=== PATIENT | female | born 1965 | race Caucasian/White ===

== ENCOUNTER → 2016-11-29 | Outpatient (CLI) | payer OTHER ==
[~2016-11-29] MED LIST: BUPR-79 PO; CALC-393 PO; CALC-485 PO; EFFSR75 PO; LVNIS30 SQ; MONT1TAB3 PO; MULT-506 PO; PANT40TA PO; ROPI1TAB PO; RXC5 PO; VENL150C56 PO; VENL150T33 PO
--- NOTE | 2016-11-29 08:32 | DIAGNOSTIC IMAGING REPORT ---
CHEST 2 VIEWS ROUTINE CLINICAL HISTORY: Cough COMPARISON STUDY: 01/18/2016 FINDINGS: The cardiac and mediastinal contours remain stable. There is a retrocardiac opacity suspicious for a hiatal hernia. There is no failure. There is no focal pulmonary consolidation. There are no pleural effusions.[ IMPRESSION: No active disease in the chest. Electronically signed by: Vince Marsh M.D. 11/29/2016 8:30 AM Dictated Date/Time: 11/29/2016 8:30 AM
[2016-11-29 09:40] LABS: BASO % 0.2 %; BASO ABS # 0.01 K/uL (0-0.2); COMPLETE YES; EOS % 2.1 %; HEMATOCRIT 42.7 % (37-47); IG% 0.2 %; LYMPH % 34.5 %; LYMPH ABS # 1.84 K/uL (1.2-3.4); MEAN CORPUSCULAR HEMOGLOBIN 28.5 pg (25-34); MEAN CORPUSCULAR HGB CONC 32.8 g/dl (32-36); MEAN PLATELET VOLUME 11.7 fL (7.4-10.4); MONO % 5.8 %; NEUT % 57.2 %; PLATELET COUNT 219 K/uL (130-400); RED BLOOD COUNT 4.91 M/uL (4.2-5.4); WHITE BLOOD COUNT 5.33 K/uL (4.8-10.8)
[2016-11-29 09:54] LABS: BLOOD UREA NITROGEN 21 mg/dl (7-18); BUN/CREATININE RATIO 23.6 (10-20); CALCIUM 9.2 mg/dl (8.5-10.1); CARBON DIOXIDE 23 mmol/L (21-32); CHLORIDE 106 mmol/L (98-107); CHOLESTEROL 174 mg/dl (0-200); CREATININE 0.87 mg/dl (0.60-1.20); GLUCOSE 95 mg/dl (70-99); POTASSIUM 4.2 mmol/L (3.5-5.1); SODIUM 141 mmol/L (136-145)
[2016-11-29 10:05] LABS: CHOLESTEROL/HDL RATIO 3.2; HDL CHOLESTEROL 54 mg/dl; LDL CHOLESTEROL CALCULATED 85 mg/dl; TRIGLYCERIDES 174 mg/dl (0-150); VERY LOW DENSITY LIPOPROT CALC 35 mg/dl
== END | disposition home or self-care (01) ==
LOC: C.RAD 07:54
PROVIDERS: ATTEND Internal Medicine
DX: R05 Cough (principal); Z13.1 Encounter for screening for diabetes mellitus; Z13.220 Encounter for screening for lipoid disorders; F41.8 Other specified anxiety disorders; R12 Heartburn

== ENCOUNTER → 2017-06-13 | Day surgery (SDC) | payer OTHER ==
[2017-05-26 14:49] VITALS: BMI 39.0
[~2017-06-13] VITALS: Ht 162.6 cm; Wt 104.5 kg
[~2017-06-13] MED LIST changes: -CALC-485 PO; +LIDOCAINE HCL 2% 2 ML VIAL (20MG/ML) ONE; -LVNIS30 SQ; -MONT1TAB3 PO; +PROPOFOL IV EMULSION 10 MG/ML 20 ML VIAL IV ONE; -RXC5 PO; -VENL150T33 PO
[2017-06-13 10:05] VITALS: Ht 162.6 cm; Wt 104.5 kg
[2017-06-13 10:07] VITALS: TEMP 36.8
--- NOTE | 2017-06-13 10:18 | Endo History and Physical ---
History & Physical Date of Service: Jun 13, 2017. Chief Complaint: SCREENING FOR COLON CA Referring Physician: DR. MARLEN VARNER History of Present Illness 51 yo CF who presents for screening colonoscopy. Past Medical History Arthritis, Reflux Past Surgical History Hx Cardiac Surgery: No Hx Internal Defibrillator: No Hx Pacemaker: No Hx Abdominal Surgery: Yes (TUBAL LIGATION, LEANNE) Hx of Implantable Prosthesis: No Hx Post-Op Nausea and Vomiting: No Hx Cancer Surgery: No Hx Thoracic Surgery: No Hx Orthopedic: Yes (LEFT ANKLE ORIF, RT EDELMIRA) Hx Urinary Tract Surgery: No Family History Colon CA Social History Smoking Status: Former Smoker Hx Substance Use: No Hx Alcohol Use: Yes (OCCASIONALLY) Allergies Coded Allergies: Aspirin (Verified Adverse Reaction, Unknown, SEVERE GI UPSET, 05/26/17) Current Medications Reported Home Medications Medications Dose Route/Sig Max Daily Dose Days Date Category Requip (Ropinirole HCl) 1 Mg Tab 1 Mg PO BID 05/26/17 Reported Wellbutrin Sr (Bupropion HCl) 150 Mg Ertab 150 Mg PO HS 05/26/17 Reported Multivitamin (Multivitamins) Tab 1 Tab PO QAM 05/26/17 Reported Calcium (Calcium Carbonate) 600 Mg Tab 1 Tab PO QAM 05/26/17 Reported Protonix (Pantoprazole Sodium) 40 Mg Tab 40 Mg PO QAM 05/26/17 Reported Effexor Extended Rel (Venlafaxine Hcl) 150 Mg Cap 150 Mg PO QAM 05/26/17 Reported Effexor Extended Rel (Venlafaxine Hcl) 75 Mg Capcr 75 Mg PO QAM 05/26/17 Reported Vital Signs Weight (Kilograms): 104.55 Height (Feet): 5 Height (Inches): 4 Date Time Temp Pulse Resp B/P (MAP) Pulse Ox O2 Delivery O2 Flow Rate FiO2 06/13/17 10:07 36.8 89 18 162/101 (121) 96 Room Air Physical Exam General Appearance: WD/WN, no apparent distress Respiratory/Chest: Auscultation: breath sounds normal Cardiovascular: Heart Auscultation: RRR Abdomen: Bowel Sounds: normal Inspection & Palpation: soft, non-distended, no tenderness, guarding & rebound Assessment and Plan Assessment: 51 yo CF who presents for screening colonoscopy. Plan: Proceed with colonoscopy.
--- NOTE | 2017-06-13 11:04 | Discharge Instructions ---
Endoscopy Patient Instructions Date / Procedure(s) Performed Jun 13, 2017. Colonoscopy Allergy Information Coded Allergies: Aspirin (Verified Adverse Reaction, Unknown, SEVERE GI UPSET, 06/13/17) Discharge Date / Findings Jun 13, 2017. Internal hemorrhoids Medication Instructions OK to resume all medications today as prescribed Reported Home Medications Medications Dose Route/Sig Max Daily Dose Days Date Category Requip (Ropinirole HCl) 1 Mg Tab 1 Mg PO BID 05/26/17 Reported Wellbutrin Sr (Bupropion HCl) 150 Mg Ertab 150 Mg PO HS 05/26/17 Reported Multivitamin (Multivitamins) Tab 1 Tab PO QAM 05/26/17 Reported Calcium (Calcium Carbonate) 600 Mg Tab 1 Tab PO QAM 05/26/17 Reported Protonix (Pantoprazole Sodium) 40 Mg Tab 40 Mg PO QAM 05/26/17 Reported Effexor Extended Rel (Venlafaxine Hcl) 150 Mg Cap 150 Mg PO QAM 05/26/17 Reported Effexor Extended Rel (Venlafaxine Hcl) 75 Mg Capcr 75 Mg PO QAM 05/26/17 Reported Provider Instructions Activity Restrictions - No exercising or heavy lifting for 24 hours. - Do not drink alcohol the day of the procedure. - Do not drive a car or operate machinery until the day after the procedure. - Do not make any important decisions or sign important papers in 24 hours after the procedure. Following Day: - Return to full activity which may include returning to work/school. Diet Start your diet with liquids and light foods (jello, soup, juice, toast). Then eat your usual diet if not nauseated. Treatment For Common After Affects For mild abdominal pain, bloating, or excessive gas: - Rest - Eat lightly - Lie on right side Follow-Up Information Follow-up with DR. MARLEN VARNER as scheduled Anesthesia Information What You Should Know You have had a procedure that required some medicine to reduce anxiety and discomfort. This treatment is called moderate sedation. After receiving the treatment, you may be sleepy, but you will be able to breathe on your own. The effects of the treatment may last for several hours. Follow these instructions along with Activity/Diet recommendations noted above: * Do NOT do anything where dizziness or clumsiness would be dangerous. * Rest quietly at home today, then you can be up and about tomorrow. * Have a responsible person stay with you the rest of today. * You may have had an I.V. today. If so, you may take the dressing off later today. Recommendations Call your doctor if: * Trouble breathing * Continuous vomiting for more than 24 hours * Temperature above 101 degrees * Severe abdominal pain or bloating * Pain not relieved by pain medicine ordered * There is increased drainage or redness from any incision * A large amount of rectal bleeding greater than 2-3 tablespoons. (If you had a polyp/s removed or have hemorrhoids, a small amount of blood - from the rectum is to be expected.) * You have any unanswered questions or concerns. IN THE EVENT OF A SERIOUS EMERGENCY, GO TO THE NEAREST EMERGENCY ROOM Your discharge instructions were prepared by provider Bassem Bernstein. Patient Instructions Signature Page Leslie Adkins Patient (or Guardian) Signature/Date: I have read and understand the instructions given to me by my caregivers. Caregiver/RN/Doctor Signature/Date: The above-named patient and/or guardian has received patient instructions on this date. + Original Patient Signature Page (only) stays with chart. Please make copy for patient.
--- NOTE | 2017-06-13 11:24 | GI REPORT ---
Procedure Date: 06/13/2017 10:26 AM Procedure: Colonoscopy Indications: Screening for colorectal malignant neoplasm Medicines: Monitored Anesthesia Care Complications: No immediate complications. Estimated Blood Loss: Estimated blood loss: none. Procedure: Pre-Anesthesia Assessment: - Prior to the procedure, a History and Physical was performed, and patient medications and allergies were reviewed. The patient's tolerance of previous anesthesia was also reviewed. The risks and benefits of the procedure and the sedation options and risks were discussed with the patient. All questions were answered, and informed consent was obtained. Prior Anticoagulants: The patient has taken no previous anticoagulant or antiplatelet agents. ASA Grade Assessment: III - A patient with severe systemic disease. After reviewing the risks and benefits, the patient was deemed in satisfactory condition to undergo the procedure. After I obtained informed consent, the scope was passed under direct vision. Throughout the procedure, the patient's blood pressure, pulse, and oxygen saturations were monitored continuously. The scope was introduced through the anus and advanced to the terminal ileum. The colonoscopy was performed without difficulty. The patient tolerated the procedure well. The quality of the bowel preparation was good. The terminal ileum, ileocecal valve, appendiceal orifice, and rectum were photographed. Findings: Non-bleeding internal hemorrhoids were found during retroflexion. The hemorrhoids were small. The exam was otherwise without abnormality. Impression: - Non-bleeding internal hemorrhoids. - The examination was otherwise normal. - No specimens collected. Recommendation: - Resume previous diet. - Continue present medications. - Repeat colonoscopy in 10 years for surveillance. - Return to primary care physician as previously scheduled. Bassem Bernstein DO 06/13/2017 11:24:13 AM This report has been signed electronically. Note Initiated On: 06/13/2017 10:26 AM I attest to the content of the Intraoperative Record and orders documented therein, exceptions below
[2017-06-13 11:31] VITALS: BP 158/85; PULSE 79; O2SAT 99
--- NOTE | 2017-06-13 11:37 | Anesthesiology Progress Note ---
Anesthesia Post Op Note Date & Time Jun 13, 2017 at 11:37 Vital Signs Pain Intensity: 0 Vital Signs Past 12 Hours Date Time Temp Pulse Resp B/P (MAP) Pulse Ox O2 Delivery O2 Flow Rate FiO2 06/13/17 11:31 79 20 158/85 (109) 99 Room Air 06/13/17 11:17 85 18 165/98 (120) 97 Room Air 06/13/17 11:02 91 18 150/75 (100) 98 Room Air 06/13/17 10:07 36.8 89 18 162/101 (121) 96 Room Air Notes Mental Status: alert / awake / arousable, participated in evaluation Pt Amnestic to Procedure: Yes Nausea / Vomiting: adequately controlled Pain: adequately controlled Airway Patency, RR, SpO2: stable & adequate BP & HR: stable & adequate Hydration State: stable & adequate Anesthetic Complications: no major complications apparent
== END | disposition home or self-care (01) ==
LOC: C.GI 09:52
PROVIDERS: ATTEND Internal Medicine
DX: Z12.11 Encounter for screening for malignant neoplasm of colon (principal); K64.8 Other hemorrhoids; K21.9 Gastro-esophageal reflux disease without esophagitis; M19.90 Unspecified osteoarthritis, unspecified site; Z80.0 Family history of malignant neoplasm of digestive organs; Z87.891 Personal history of nicotine dependence; Z79.899 Other long term (current) drug therapy

== ENCOUNTER → 2017-06-16 | Outpatient (CLI) | payer OTHER ==
[~2017-06-16] MED LIST changes: -LIDOCAINE HCL 2% 2 ML VIAL (20MG/ML) ONE; -PROPOFOL IV EMULSION 10 MG/ML 20 ML VIAL IV ONE
--- NOTE | 2017-06-16 10:41 | DIAGNOSTIC IMAGING REPORT ---
FLUOROSCOPICALLY GUIDED LEFT HIP ANESTHETIC AND STEROID INJECTION CLINICAL HISTORY: Degenerative arthritis. Left hip pain. COMPARISON STUDY: Conventional radiographic study dated 03/15/2012 FLUOROSCOPY TIME: 32 seconds. NUMBER OF FLUOROSCOPIC IMAGES: 1 FINDINGS: A timeout was performed. The risks of the procedure were explained to the patient and informed consent was obtained. The patient was prepped and draped in sterile fashion. Skin was anesthetized 1% lidocaine. Under fluoroscopic guidance, 22-gauge spinal needle was introduced the joint capsule. In particular location was documented with injection of Optiray 300. 2 cc of betamethasone, and 5 cc of 0.5% bupivacaine were instilled into the joint capsule. IMPRESSION: Fluoroscopically guided intra-articular left hip injection of 2 cc of betamethasone and 5 cc of 0.5% bupivacaine Electronically signed by: Vince Marsh M.D. 06/16/2017 10:40 AM Dictated Date/Time: 06/16/2017 10:37 AM
== END | disposition home or self-care (01) ==
LOC: C.RADBC 09:35
PROVIDERS: ATTEND Orthopaedic Surgery
DX: M16.12 Unilateral primary osteoarthritis, left hip (principal)

== ENCOUNTER → 2017-07-10 | Outpatient (CLI) | payer OTHER ==
[2017-07-10 11:56] LABS: BASO % 0.3 %; BASO ABS # 0.02 K/uL (0-0.2); COMPLETE YES; EOS % 1.9 %; HEMATOCRIT 41.9 % (37-47); IG% 0.3 %; LYMPH % 24.7 %; LYMPH ABS # 1.47 K/uL (1.2-3.4); MEAN CELL VOLUME 87.1 fL (80-100); MEAN CORPUSCULAR HEMOGLOBIN 28.3 pg (25-34); MEAN CORPUSCULAR HGB CONC 32.5 g/dl (32-36); MEAN PLATELET VOLUME 10.7 fL (7.4-10.4); MONO % 6.4 %; NEUT % 66.4 %; PLATELET COUNT 340 K/uL (130-400); RED BLOOD COUNT 4.81 M/uL (4.2-5.4); WHITE BLOOD COUNT 5.94 K/uL (4.8-10.8)
[2017-07-10 12:38] LABS: ALT/SGPT 32 U/L (12-78); AST/SGOT 13 U/L (15-37); BLOOD UREA NITROGEN 19 mg/dl (7-18); CALCIUM 9.5 mg/dl (8.5-10.1); CARBON DIOXIDE 25 mmol/L (21-32); CHLORIDE 106 mmol/L (98-107); CREATININE 0.96 mg/dl (0.60-1.20); GLUCOSE 97 mg/dl (70-99); POTASSIUM 4.5 mmol/L (3.5-5.1); SODIUM 140 mmol/L (136-145)
[2017-07-10 12:46] LABS: ALKALINE PHOSPHATASE 127 U/L (45-117); C-REACTIVE PROTEIN 1.72 mg/dl (0-0.29); RHEUMATOID FACTOR < 10.0 U/mL (0-15); TOTAL IRON BINDING CAPACITY 373 mcg/dl (250-450)
== END | disposition home or self-care (01) ==
LOC: C.LAB1850 11:11
PROVIDERS: ATTEND Physician Assistant
DX: R53.81 Other malaise (principal); R61 Generalized hyperhidrosis; M19.90 Unspecified osteoarthritis, unspecified site

== ENCOUNTER → 2017-07-24 | Outpatient (CLI) | payer OTHER | END | disposition home or self-care (01) | LOC: C.PAPS 14:19 | PROVIDERS: ATTEND Physician Assistant | DX: Z12.4 Encounter for screening for malignant neoplasm of cervix (principal) ==

== ENCOUNTER → 2017-09-13 | Outpatient (CLI) | payer OTHER ==
[2017-09-13 09:32] LABS: THYROID STIMULATING HORMONE 1.44 uIu/ml (0.300-4.500)
--- NOTE | 2017-09-13 09:49 | DIAGNOSTIC IMAGING REPORT ---
THYROID ULTRASOUND HISTORY: THYROID NODULE COMPARISON: None. FINDINGS: Right lobe: 3.6 x 1.4 x 1.3 cm. No nodules. Left lobe: 5.1 x 3.2 x 4.1 cm. Asymmetrical enlarged, heterogeneous, and multinodular. Dominant nodule within the lower pole measures 4.0 x 2.7 x 2.4 cm and is best seen on image 17 and 33. This demonstrates a small amount peripheral calcification and is primarily solid. Isthmus: 8 mm in thickness. No nodules. IMPRESSION: Enlarged multinodular left thyroid gland. Dominant solid nodule measures 4.0 x 2.7 x 2.4 cm. Recommend ultrasound guided fine-needle aspiration of this dominant nodule. Electronically signed by: Mateus Donohue M.D. 09/13/2017 9:47 AM Dictated Date/Time: 09/13/2017 9:43 AM
[2017-09-13 10:14] LABS: ESTIMATED AVERAGE GLUCOSE 111 mg/dl; HA1C FLAG Normal (Normal)
[2017-09-17 13:30] LABS: NORMETANEPHRINE PLASMA 157 pg/mL (<=148); TOTAL METANEPHRINE PLASMA 182 pg/mL (<=205)
== END | disposition home or self-care (01) ==
LOC: C.ULTR 08:26
PROVIDERS: ATTEND Internal Medicine Endocrinology, Diabetes & Metabolism
DX: E04.1 Nontoxic single thyroid nodule (principal); R61 Generalized hyperhidrosis

== ENCOUNTER → 2017-09-22 | Outpatient (CLI) | payer OTHER ==
--- NOTE | 2017-09-22 11:48 | DIAGNOSTIC IMAGING REPORT ---
ULTRASOUND GUIDED FINE NEEDLE ASPIRATION OF LEFT LOBE THYROID NODULE CLINICAL HISTORY: Left lobe thyroid nodule. COMPARISON STUDY: Thyroid ultrasound September 13, 2017. PROCEDURE: Sonography of the thyroid gland again demonstrated a multinodular left lobe with a dominant 4 cm lower pole nodule which was targeted for fine needle aspiration. The procedure, risks and benefits were discussed with the patient. The patient agreed to the procedure and informed written consent was obtained. The procedure was performed by Dr. Aquino following a timeout. Skin was prepped and draped in sterile fashion and local anesthesia was achieved with 1% lidocaine. Under direct ultrasound guidance, 3 25-gauge fine needle aspirations of the nodule were performed. The samples were deemed preliminarily adequate by pathology. The patient tolerated the procedure well and no immediate complications were evident. IMPRESSION: Ultrasound guided fine needle aspiration of dominant 4 cm left lower pole thyroid nodule. Electronically signed by: Gerry Aquino M.D. 09/22/2017 11:47 AM Dictated Date/Time: 09/22/2017 11:45 AM
== END | disposition home or self-care (01) ==
LOC: C.ULTR 10:33
PROVIDERS: ATTEND Internal Medicine Endocrinology, Diabetes & Metabolism
DX: E04.1 Nontoxic single thyroid nodule (principal)

== ENCOUNTER → 2018-04-19 | Outpatient (CLI) | payer OTHER | END | disposition home or self-care (01) | LOC: C.LAB1850 10:12 | PROVIDERS: ATTEND Physician Assistant | DX: E04.1 Nontoxic single thyroid nodule (principal) ==

== ENCOUNTER 2021-04-16 08:10 | Observation (INO) ==
--- NOTE | 2021-03-16 15:02 | PAT Medication Instructions ---
Medication Instructions Date of Service March 16, 2021 Home Medications Medication Instructions Recorded bupropion HCl 150 mg 24 hr tablet, 150 mg PO QAM #90 tab 12/14/20 extended release pantoprazole 40 mg tablet,delayed 40 mg PO BID #180 tab 01/08/21 release calcium carbonate 500 mg calcium (1,250 mg) chewable tablet 500 mg PO DAILY multivitamin 1 tab PO QAM bupropion HCl 150 mg 24 hr tablet, extended release 150 mg PO QAM pantoprazole 40 mg tablet,delayed release 40 mg PO BID gabapentin 100 mg PO HS levothyroxine 75 mcg PO QAM venlafaxine [Effexor XR] 75 mg PO QAM venlafaxine [Effexor XR] 150 mg PO QAM DO NOT take the morning of surgery calcium carbonate 500 mg calcium (1,250 mg) chewable tablet 500 mg PO DAILY multivitamin 1 tab PO QAM Take morning of surgery With a small sip of water, OTHERWISE NOTHING TO EAT OR DRINK AFTER MIDNIGHT: bupropion HCl 150 mg 24 hr tablet, extended release 150 mg PO QAM pantoprazole 40 mg tablet,delayed release 40 mg PO BID levothyroxine 75 mcg PO QAM venlafaxine [Effexor XR] 75 mg PO QAM venlafaxine [Effexor XR] 150 mg PO QAM Take evening before surgery pantoprazole 40 mg tablet,delayed release 40 mg PO BID gabapentin 100 mg PO HS Other Notes If you have any questions please call us at [phone] or [phone] or [phone] or [phone]
--- NOTE | 2021-03-18 08:26 | Anesthesiology Consultation ---
Date of Service March 18, 2021 Assessment & Plan (1) Encounter for pre-operative examination: COVID Status: As of 03/18 assessment, patient denies travel to endemic area, known exposure/sick contacts, or symptoms of COVID19. Patient advised to adhere to social distancing guidelines, wear a mask in public and avoid large crowds or unnecessary travel in the 2 weeks leading up to surgery. Preoperative COVID19 testing to be completed prior to surgery per surgeon's arrangements. Pat ient encouraged to be extra cautious/conscientious with COVID precautions between COVID testing and surgery. Chart Review Chart Review: Acceptable Risk for Surgery and Patient NOT seen in Pre Admission Testing Teaching & Discussion Instructed NPO after midnight before surgery, except medications with 15 cc of water. Medication instructions provided according to the PAT guidelines. History Surgery Operation Date: 04/16/21 08:10 Proposed Procedures p Left Total Hip Arthroplasty Anterior - Avila Lester, Height/Weight Height: 5 ft 4 in Weight: 95.3 kg Allergies Allergy/AdvReac Type Severity Reaction Status Date / Time aspirin AdvReac Unknown SEVERE GI Verified 03/11/21 11:47 UPSET Medications Home Medications Medication Instructions Recorded Confirmed Last Taken calcium carbonate 500 mg calcium 500 mg PO DAILY tab 07/25/19 03/11/21 Unknown (1,250 mg) chewable tablet multivitamin 1 tab PO QAM 07/25/19 03/11/21 Unknown bupropion HCl 150 mg 24 hr tablet, 150 mg PO QAM #90 tab 12/14/20 03/11/21 Unknown extended release pantoprazole 40 mg tablet,delayed 40 mg PO BID #180 tab 01/08/21 03/11/21 Unknown release gabapentin 100 mg PO HS 03/11/21 03/11/21 Unknown levothyroxine 75 mcg PO QAM 03/11/21 03/11/21 Unknown venlafaxine [Effexor XR] 75 mg PO QAM 03/11/21 03/11/21 Unknown venlafaxine [Effexor XR] 150 mg PO QAM 03/11/21 03/11/21 Unknown Past Medical History Medical History Arthritis Barretts esophagus Depression with anxiety Hypothyroidism s/p total thyroidectomy Obesity Restless leg Exercise / Class Metabolic Activity II 4-5 Yardwork/Stairs/Walk up hill (Moving more slowly 2/2 hip pain but still does stairs) Past Family History Family History Mother Diabetes Hypertension Arthritis Uncle Prostate cancer Aunt Cancer Father Arthritis Sister Arthritis Denies family history of Ovarian cancer Myocardial infarction Breast cancer Colorectal cancer Past Surgical History Surgical History History of ankle surgery repair of fracture History of total right hip arthroplasty (02/26/16) Trevon History of tubal ligation Hx of cholecystectomy Hx of thyroidectomy (02/12/18) subtotal (left lobe, isthmus and portion of right lobe) Harlor Past Anesthesia History No Hx of Anesthesia Complications and No Family Hx of Anesthesia Complications History of PONV No Hx of PONV and No Hx of Motion Sickness Social History Smoking Status: Former smoker tobacco type: cigarettes Smoking cigarettes per day: 1-2 ppd Do You Dip or Chew Tobacco: No Smoking End Date: quit ~15 yrs ago Hx Alcohol Use: No Hx Substance Use: No substance use type: does not use Review of Systems Pt denies any recent chest pain, shortness of breath, palpitations, cough, fever, URI, or uncontrolled acid reflux (controlled on PPI). Physical Exam Vital Signs BP: 150/94 (pt reports it's always this high in medical settings, PCP has never mentioned initiating BP meds) P: 89bpm SPO2: 98% RA T: 98.4 F R: 16 ENMT Mouth: no dental restorations, no chipped teeth and no loose teeth Thyromental Distance: > or= 3.5 Finger Breadths Mallampati Class: II Neck neck extension not limited midline thyroidectomy scar Respiratory normal respiratory effort, lungs clear to auscultation Auscultation: + diminished lung sounds Cardiovascular RRR, no murmur, no edema Vessels: no carotid bruit Lab Results Anesthesia Preop Results Results Anesthesia Widget: WBC 7.80 K/uL (4.8-10.8) 03/18/21 Hgb 13.7 g/dL (12.0-16.0) 03/18/21 Hct 42.9 % (37-47) 03/18/21 Plt 260 K/uL (130-400) 03/18/21 Na 141 mmol/L (136-145) 03/18/21 K 4.7 mmol/L (3.5-5.1) 03/18/21 Cl 109 mmol/L (98-107) H 03/18/21 CO2 28 mmol/L (21-32) 03/18/21 BUN 15 mg/dl (7-18) 03/18/21 Creat 0.97 mg/dl (0.6-1.2) 03/18/21 Glucose Level 112 mg/dl (70-99) H 03/18/21 PT 9.6 Seconds (9.0-12.0) 03/18/21 PTT 26.4 Seconds (21.0-31.0) 03/18/21 INR 0.9 (0.9-1.1) 03/18/21 Blood Type O Positive 03/18/21 Antibody Screen NEGATIVE 03/18/21 Testing Electrocardiogram Date: 03/18/21 Findings: + NSR @ (82bpm) and + no change from (2015) Chest X-Ray Date: 03/18/21 Findings: + NAD Moderate hiatal hernia.
--- NOTE | 2021-04-15 11:15 | History & Physical Report ---
Date of Service April 15, 2021 Assessment & Plan (1) Osteoarthritis of left hip: We will proceed with a left anterior total hip arthroplasty. Postoperatively she will be started on aspirin for DVT prophylaxis and kept overnight in the hospital for postoperative medical management. She plans to use home health upon discharge. History of Present Illness Chief Complaint: Osteoarthritis of the left hip. Primary Care Provider: Eliot Waite MD Leslie is a pleasant 55-year-old female who I did a right lateral hip replacement on in 2015. She has done well with that. She has no right hip pain. Unfortunate she has been dealing with a lot of left hip pain. X-rays and clinical examination have been diagnostic for advanced osteoarthritis of the left hip. After failing conservative treatment, she has elected to proceed with a left anterior total hip arthroplasty.. Allergies Allergy/AdvReac Type Severity Reaction Status Date / Time aspirin AdvReac Unknown SEVERE GI Verified 04/14/21 09:23 UPSET Home Medications Medication Instructions Recorded Confirmed Type calcium carbonate 500 mg calcium 500 mg PO DAILY tab 07/25/19 04/14/21 History (1,250 mg) chewable tablet multivitamin 1 tab PO QAM 07/25/19 04/14/21 History bupropion HCl 150 mg 24 hr tablet, 150 mg PO QAM #90 tab 12/14/20 04/14/21 Rx extended release pantoprazole 40 mg tablet,delayed 40 mg PO BID #180 tab 01/08/21 04/14/21 Rx release (Protonix) levothyroxine 75 mcg tablet 75 mcg PO QAM 03/11/21 04/14/21 History venlafaxine 75 mg capsule,extended 75 mg PO QAM 03/11/21 04/14/21 History release 24 hr (Effexor XR) venlafaxine 150 mg 150 mg PO QAM #90 cap 04/09/21 04/14/21 Rx capsule,extended release 24 hr (Effexor XR) gabapentin 100 mg capsule 100 mg PO HS #30 cap 04/12/21 04/14/21 Rx Past Med/Surg History Medical History Arthritis Barretts esophagus Depression with anxiety Hypothyroidism s/p total thyroidectomy Obesity Restless leg Surgical History History of ankle surgery repair of fracture History of total right hip arthroplasty (02/26/16) Trevon History of tubal ligation Hx of cholecystectomy Hx of thyroidectomy (02/12/18) subtotal (left lobe, isthmus and portion of right lobe) Harlor Family History Mother Diabetes Hypertension Arthritis Uncle Prostate cancer Aunt Cancer Father Arthritis Sister Arthritis Denies family history of Ovarian cancer Myocardial infarction Breast cancer Colorectal cancer Social History Smoking Status: Former smoker Age Started Using Tobacco: 11; Age Quit Using Tobacco: 43; Years Smoked: 31; Cigarettes Per Day: 1-2 ppd; Number of Years Since Quit: 12; Second Hand Exposure: No; Hx Alcohol Use: No Hx Substance Use: No Preferred Language: Albanian Communication Ability: Effective Visual Impairment: No Limitations Hearing Ability: Normal Client Experience Consultant Required: No Beliefs That Will Affect Care: None marital status: Current Living Situation: Spouse current occupational status: unemployed current occupation: homemaker Feels Safe at Home: Yes Childhood Exposure to Second-Hand Smoke: No Dental Care, Regularly: No Physical Activity Frequency: Does not Exercise Seatbelt Use: always Sunscreen Use: No Assistive Devices: Glasses Review of Systems All systems reviewed & are unremarkable except as noted in HPI & below. Physical Exam On physical examination of the left hip, she ambulates independently. I can flex her 90 degrees. She has 30 degrees of external rotation 0 degrees of internal rotation. She is a lot of pain in her groin.. Constitutional WD/WN, vitals as above Eyes PERRL, conjunctivae normal, anicteric sclerae ENMT external ear and nose normal, oropharynx normal Neck trachea midline, no thyromegaly Respiratory normal respiratory effort Cardiovascular RRR, no murmur, no edema Gastrointestinal (Abdomen) normal bowel sounds, soft, nontender, no hepatosplenomegaly Psychiatric A+Ox3, euthymic affect Results & Data Results & Data Laboratory Results . Diagnostic Findings X-rays of the left hip do show advanced osteoarthritis with joint space narrowing, osteophyte formation, and [id number] articulation. PG Care Time/CCT Total # of Minutes Spent Total Time Spent with Patient: Total time spent is greater than 50% in coordination of care (as documented) at patient's floor/unit and/or counseling patient: Coding Level of Care Code None Diagnoses Osteoarthritis of left hip M16.12
[~2021-04-16 08:10] MED LIST changes: +ACETAMINOPHEN 500 MG TAB PO SCH; +BUPIVACAINE 0.5 % 5 MG/1 ML PF 10ML VIAL ONE; -BUPR-79 PO; -CALC-393 PO; -EFFSR75 PO; +FAMOTIDINE 20 MG TAB PO SCH; +GABAPENTIN 600 MG DOSE PO SCH; +LR 500ML BOLUS, THEN 15ML/HR IV SCH; +LR 60ML/HR IV SCH; -MULT-506 PO; -PANT40TA PO; -ROPI1TAB PO; +ROPIVACAINE 0.5% HCL/PF 150 MG, BUPIVACAINE 0.75% MPF 20 ML, EPINEPHrine 30MG/30ML (OR ... INSTIL SCH; +TRANEXAMIC ACID 1,000 MG **IV Pre-op IV SCH; -VENL150C56 PO; +ceFAZolin 2000MG 2,000 MG/15 ML SYR IV SCH; +dexAMETHasone 4 MG TAB PO SCH
[2021-04-16] MEDS ORDERED: PHENYLEPHRINE 100MCG/ML 5ML SYR IV PRN (08:51)
[2021-04-16] MEDS ORDERED: HYDROmorphone INJ 1 MG/ML SYRINGE IV PRN (08:51)
[2021-04-16] MEDS ORDERED: LABETALOL HCL IV 5 MG/ML 20ML IV PRN (08:51)
[2021-04-16] MEDS ORDERED: ONDANSETRON INJ 2 MG/ML 2 ML VIAL IV PRN ×2 (08:51→14:41)
[2021-04-16] MEDS ORDERED: fentaNYL citrate 100 MCG/2 ML VIAL IV PRN (08:51)
[2021-04-16] MEDS ORDERED: ATROPINE SULFATE 0.1 MG/ML 10ML SYR IV PRN (08:51)
[2021-04-16] MEDS ORDERED: MEPERIDINE HCL 25 MG/ML CARP/VIAL IV PRN (08:51)
[2021-04-16] MEDS ORDERED: ePHEDrine sulfate 50 MG/ML AMP IV PRN (08:51)
[2021-04-16] MEDS ORDERED: fentaNYL citrate 100 MCG/2 ML VIAL ONE (10:44)
[2021-04-16] MEDS ORDERED: MIDAZOLAM HCL 1 MG/ML 2ML VIAL ONE (10:44)
[2021-04-16] MEDS ORDERED: ePHEDrine sulfate 50 MG/ML AMP ONE (10:49)
[2021-04-16] MEDS ORDERED: PROPOFOL IV EMULSION 10 MG/ML 20 ML VIAL IV ONE (10:49)
[2021-04-16] MEDS ORDERED: ONDANSETRON INJ 2 MG/ML 2 ML VIAL ONE (10:49)
[2021-04-16] MEDS ORDERED: LIDOCAINE 2% 2 ML VIAL/AMP(20MG/ML) INFIL ONE (10:49)
--- NOTE | 2021-04-16 10:55 | History & Physical Bridge Note ---
Date of Service April 16, 2021 History & Physical Bridge Note I have examined the patient, reviewed the History & Physical and in the interval since the performance of the History & Physical I have noted the following changes of clinical significance: no changes noted
[2021-04-16] MEDS ORDERED: ORTHO JOINT ANESTHETIC ONE (11:26)
--- NOTE | 2021-04-16 13:15 | Operative Report ---
PG Post Operative Report Pre & Post Diagnosis Operation Date: 04/16/21 10:20 Pre-Op Diagnosis: Left Hip Osteoarthritis Post-Op Diagnosis: Left Hip Osteoarthritis I identified the patient and participated in the time-out.: Yes Procedure Operation Date: 04/16/21 10:20 Left anterior total hip arthroplasty Surgeon Avila Lester DO Casing Runner Avila Emanuel PAC Estimated Blood Loss 250 Findings Consistent with Post-Op Diagnosis Specimens Left femoral head Complications none Disposition Disposition: Recovery Room Indications Leslie is a pleasant 55-year-old female who is been dealing with chronic increasing left hip and groin pain. I did a right hip replacement on her in 2015 and she did well with that. Unfortunate she has been dealing with a lot of left hip pain. X-rays and clinical examination were diagnostic for advanced osteoarthritis of the left hip. After failing conservative treatment, she elected proceed with a left anterior total hip arthroplasty. Description of Procedure Implants used I used a [employer]immer[employer] total hip arthroplasty system with a size 3 Avenir Complete stem, a 50 mm G7 cup with a 25mm screw, an E1 polyethylene liner, a 36 mm ceramic head with a +0 neck. Leslie arrived at the hospital for the above procedure. She was seen in the preoperative holding area and the operative extremity was identified and signed. She was given a spinal anesthetic, a preoperative antibiotic, and TXA. She was then taken back to the operating room and laid on the table in the supine position. She was given basic sedation. The operative leg was secured to a Puristst leg positioner. The hip was then prepped and draped in sterile fashion. A timeout was done and the patient and the operative extremity was properly identified. An anterior approach was used. Dissection was taken down through the fascia and the tensor muscle belly was retracted laterally and the rectus was retracted medially. The circumflex vessels were identified and ligated. The capsule was then incised and tagged for later repair. The femoral neck was then cut and the femoral head was removed. The acetabulum was exposed. Time was spent doing a complete circumferential labral release. Sequential reaming of the acetabulum up to a size 49 reamer was done. Final reamings were done under fluoroscopy to ensure appropriate version. A Biomet 50 mm G7 cup was then impacted into place. A single 25 mm screw was placed. The E1 polyethylene liner was then snapped into place. Surrounding soft tissues were then injected with 100 cc of an orthopedic pain control cocktail. The proximal femur was then exposed. Sequential broaching up to a size 3 broach was done. Off that broach a size 36 head with a +0 neck was trialed. The hip was reduced and fluoroscopic images showed anatomic alignment of the implants in acceptable length. The broach was removed. The final size 3 standard offset Avenir Complete stem was then impacted into place. A ceramic 36 mm head with a +0 neck was then impacted onto the stem and the hip was reduced. Final fluoroscopic images showed anatomic alignment of the hip. The capsule was then closed with #1 Vicryl suture. A dilute betadyne lavage was then done for 3 mi nutes. The joint was then irrigated with normal saline solution. The fascia was closed with #1 PDS suture. Skin was closed with 2-0 Vicryl, prince, and a Silverlon dressing. She was then transferred to a hospital bed and taken to the post anesthesia care unit in stable condition. She tolerated the procedure well. Avila Emanuel PA-C, was present for the entire procedure. He was critical for yeni ent positioning, prepping, draping, retraction exposure, wound closure and application of sterile dressing. I attest to the content of the Intraoperative Record and any orders documented therein. Any exceptions are noted below.
--- NOTE | 2021-04-16 14:01 | Fluoroscopy Report ---
INTRAOPERATIVE RADIOGRAPH CLINICAL HISTORY: Left hip arthroplasty. Fluoroscopy time: 22 seconds. FINDINGS: A single spot fluoroscopic image of the left hip is presented. A bipolar left hip arthropla sty is in near-anatomic alignment. A single cortical lag screw transfixes the acetabular cup. There i s no evidence of acute fracture on this fluoroscopic view. IMPRESSION: Intraoperative image from a left hip arthroplasty procedure as above. Electronically signed by: Madi Keating M.D. 04/16/2021 1:59 PM
--- NOTE | 2021-04-16 14:06 | Anesthesiology Progress Note ---
Date of Service April 16, 2021 Anesthesia Post Procedure Vital Signs Vital Signs: Temp Pulse Pulse Resp BP BP Pulse Ox 04/16/21 13:55 87 14 111/76 97 04/16/21 13:45 85 14 106/61 97 04/16/21 13:38 36.3 C L 86 14 90/56 L 95 04/16/21 08:43 36.9 C 84 20 173/92 H 99 Transfer of Care Handoff Completed per policy Notes Mental Status: alert / awake / arousable Patient Amnestic to Procedure: Yes Nausea / Vomiting: adequately controlled Pain: adequately controlled Airway Patency, RR, SpO2: stable & adequate BP & HR: stable & adequate Hydration State: stable & adequate Neuraxial Anesthesia: was administered and sensory block is resolving Anesthetic Complications: no major complications apparent and Pt Satisfied with anesthetic care
--- NOTE | 2021-04-16 14:26 | XRay Report ---
XR hip 1V LT w pelvis CLINICAL HISTORY: Postop hip arthroplasty COMPARISON: 02/26/2016 DISCUSSION: A total right hip arthroplasty is again visualized. There is heterotopic ossification adj acent to the greater trochanter. There is now evidence for a total left hip arthroplasty. Acetabular femoral components appear well seated. There are overlying skin prince. There is gas within soft tis sues consistent with recent surgery IMPRESSION: 1. Postsurgical changes of a total left hip arthroplasty. ACT 112: Negative or not required by law. Electronically signed by: Vince Marsh M.D. 04/16/2021 2:24 PM
[2021-04-16] MEDS ORDERED: oxyCODONE HCL IR 5 MG TAB (IMMEDIATE RELEASE) PO PRN (14:41)
[2021-04-16] MEDS ORDERED: MAGNESIUM HYDROXIDE SUSP 30 ML UDC PO PRN (14:41)
[2021-04-16] MEDS ORDERED: NALOXONE HCL 0.4 MG/1 ML VIAL/CARP IV PRN (14:41)
[2021-04-16] MEDS ORDERED: METOCLOPRAMIDE HCL INJ 5 MG/ML 2 ML VIAL IV PRN (14:41)
[2021-04-16] MEDS ORDERED: bisacodyL 10 MG SUPP PR PRN (14:41)
[2021-04-16] MEDS ORDERED: HYDROmorphone INJ 0.5 MG/0.5 ML SYR IV PRN (14:41)
[2021-04-16] MEDS: ACETAMINOPHEN 500 MG TAB PO SCH ×2 (15:50→23:00)
[2021-04-16] MEDS ORDERED: SODIUM CHLORIDE 0.9% 1000ML 1,000 ML IV SCH (16:00)
[2021-04-16] MEDS: KETOROLAC 30 MG/ML VIAL IV SCH ×2 (18:17→23:00)
[2021-04-16] MEDS: ASPIRIN 81 MG ECTAB PO SCH (19:59)
[2021-04-16] MEDS: ceFAZolin 2000MG 2,000 MG/15 ML SYR IV SCH (19:59)
[2021-04-16] MEDS: DOCUSATE SODIUM 100 MG CAP PO SCH (20:00)
[2021-04-16] MEDS ORDERED: GABAPENTIN 100 MG CAP PO SCH (21:00)
[2021-04-16] MEDS ORDERED: SENNA 8.6 MG TAB PO SCH (21:00)
[2021-04-17] MEDS ORDERED: Nursing to Pharmacy Communication SCH (00:30)
[2021-04-17] MEDS: ceFAZolin 2000MG 2,000 MG/15 ML SYR IV SCH (03:08)
[2021-04-17 03:15] VITALS: O2SAT 95
[2021-04-17] MEDS: ACETAMINOPHEN 500 MG TAB PO SCH (05:40)
[2021-04-17] MEDS: KETOROLAC 30 MG/ML VIAL IV SCH (05:40)
[2021-04-17] MEDS ORDERED: LEVOTHYROXINE SODIUM 75 MCG TABLET PO SCH (06:30)
[2021-04-17 07:22] VITALS: BP 153/95; PULSE 84; TEMP 98.1
[2021-04-17] MEDS ORDERED: dexAMETHasone 4 MG TAB PO SCH (08:00)
--- NOTE | 2021-04-17 08:01 | Orthopedic Progress Note ---
Date of Service April 17, 2021 Assessment & Plan (1) Status post left hip replacement: Overall she is doing very well. She denies any much pain in the left hip. She will be seen by physical therapy today for ambulation and range of motion exercises. She will be discharged home later today. She will follow-up with orthopedics in 2 weeks. We had a long discussion about her aspirin allergy. She says in the past she has taken some aspirin and it caused GI upset. We talked about alternatives such as Lovenox or Xarelto and we talked about the possible side effects with those medications. She would like to try an enteric- coated baby aspirin twice a day and see how she does. As long she tolerates it well we will use that as her course for DVT prophylaxis. If she does not tolerate rate it well she understands to call the office and we can switch her medications. Layla Nelson was seen and examined at bedside this morning. Overall she is doing very well. She is not having much pain in the left hip. She has been up and amb ulating to the bathroom. She has no complaints.. Review of Systems All systems reviewed & are unremarkable except as noted in HPI & below. Physical Exam On physical examination of the left hip, the dressing is clean and dry. Her leg lengths are equal. She has active dorsiflexion plantarflexion of her left ankle. Sensation is intact throughout.. Results & Data Results & Data Laboratory Results . Diagnostic Findings Postoperative x-rays of the left hip show the prosthesis to be in anatomic alignment without any evidence of fracture, dislocation, or loosening. PG Care Time/CCT Total # of Minutes Spent Total Time Spent with Patient: Total time spent is greater than 50% in coordination of care (as documented) at patient's floor/unit and/or counseling patient: Coding Level of Care Code 19966 Post Operative Follow-Up Diagnoses Status post left hip replacement Z96.642
--- NOTE | 2021-04-17 08:02 | Discharge Summary ---
Date of Service April 17, 2021 Admission HPI (Per Admitting) Leslie is a pleasant 55-year-old female who I did a right lateral hip replacement on in 2016. She has done well with that. She has no right hip pain. Unfortunate she has been dealing with a lot of left hip pain. X-rays and clinical examination have been diagnostic for advanced osteoarthritis of the left hip. After failing conservative treatment, she has elected to proceed with a left anterior total hip arthroplasty.. Admission Exam (Per Admitting) On physical examination of the left hip, she ambulates independently. I can flex her 90 degrees. She has 30 degrees of external rotation 0 degrees of internal rotation. She is a lot of pain in her groin.. Principal Diagnosis Same as "Discharge Diagnosis" noted below under Discharge Instructions. Discharge Exam On physical examination of the left hip, the dressing is clean and dry. Her leg lengths are equal. She has active dorsiflexion plantarflexion of her left ankle. Sensation is intact throughout.. Discharge Data Procedures Performed Operation Date: 04/16/21 10:20 Actual Procedures p Left Total Hip Arthroplasty Anterior(Left) - Avila Lester DO Ordered Studies 04/16/21 10:20 FL hip LT 1V Routine Hospital Course (1) Status post left hip replacement: On April 16, 2021 Leslie arrived at [facility] and underwent a left anterior hip replacement without complication. She had a spinal anesthetic. Postoperatively she was started on aspirin for DVT prophylaxis and transferred to the general hepatic floors. Her hospital course was uneventful. On postop day #1 her vital signs were stable and her pain was well controlled. She was able to participate well with physical therapy doing ambulation and range of motion exercises. She was then discharged home. She will follow-up with orthopedics in 2 weeks. PG Care Time/CCT Total # of Minutes Spent Total Time Spent with Patient: Total time spent is greater than 50% in coordination of care (as documented) at patient's floor/unit and/or counseling patient: Discharge Plan Discharge Items Patient Disposition: Home - Home Health Services Reason For Visit: Left Hip Osteoarthritis Discharge Diagnosis: Left hip replacement Activity: As commented below Non-emergency contact: Surgeon Call non-emergency contact if: your wound has increased redness and your wound has increased drainage Follow-up/Referrals: Pro,Eliot Stovall MD [Primary Care Provider] - Diet: Regular Addtl Attending Provider Instructions: Activity and Therapy Recommendations: * If you are using [facility] then therapy will be provided at your home until they feel you have accomplished all of your goals. * If you are using [facility] then Physical Therapy will be provided until they feel you are ready to start Outpatient Physical Therapy. * If you are not using home therapy then Outpatient Physical Therapy should start about 3-5 days from your day of surgery. Therapy will last about 6-10 weeks * You were shown a series of exercises in the hospital. Do these exercises three times each day including the exercises you were shown in physical therapy. * Get up and walk several times each day.~ For the first four weeks, try not to stand or walk for more than one hour at a time. If you do stand or walk for more than one hour, you will not hurt anything, but your leg will likely swell.~~ * As you feel comfortable, you may change from the walker or crutches to a cane and~then to independent walking. Medications: * Narcotic You will likely be sent home from the hospital with a prescription for the narcotic pain medication that worked best throughout your stay. * Aspirin Most patients will be required to take Aspirin 81mg twice a day for 6 weeks after surgery. This is obtained [id number] and a prescription is not necessary. * Other medications may be prescribed for specific circumstances. If you have any questions, please call the office at . * Resume previous home medications unless otherwise instructed TEDs/Elastic Stockings: The white elastic stockings help limit swelling and prevent blood clots from forming in your legs. The more you wear them, the more they work. Wear them for six weeks. Dressing Care: Leave the Silverlon dressing in place for 7 days. After 7 days you may remove the dressing. If the incision is not draining then you may leave the prince open to air. If there is a little bit of drainage or if the prince are getting stuck on your clothing then cover the incision with a dry dressing. The prince will be removed at your 2 week follow-up appointment. Showering: You may shower with the Silverlon dressing in place. Do not let the shower spray hit the dressing directly. Pat the Silverlon dressing dry. If the dressing becomes wet underneath, then simply remove the dressing. Keep the incision dry until you are 7 days out from the day of surgery. After 7 days you may remove the Silverlon dressing and shower with the prince exposed. Let soapy water run over the prince and pat them dry. Do not scrub or soak the incision. Things To Watch For: * Drainage from the incision site that occurs more than one week after your s urgery. * Increased redness at the incision site. * Fever above 102 degrees Fahrenheit. * Unusual chest pain or shortness of breath. * Call [facility] at with any of the above problems Follow-Up Visit: Follow-up with Dr. Lester's PA (Avila Emanuel) 2-3 weeks after your day of surgery. He will remove your prince and answer any questions. If you have any additional questions or concerns, Dr Lester is usually in the office at the same time and will be available An appointment was probably scheduled when you signed-up for surgery in the [facility]. If you have any questions call Office Instructions: More detailed instructions as well as Frequently Asked Questions were provided in a folder by our office when you signed-up for surgery. Please review these instructions when you get home. If you have any further questions or concerns, please feel free to call the office at [phone] Pending Studies at Discharge: No Stand-Alone Forms: My [facility], Smoking Cessation Medications and DC Order Prescriptions: New oxycodone 5 mg Tablet 5 mg PO Q4H PRN (Reason: pain) Qty: 40 RF: 0 aspirin 81 mg Tablet,Delayed Release (Dr/Ec) 81 mg PO BID 42 Days Qty: 0 RF: 0 Continued bupropion HCl 150 mg tablet extended release 24 hr 150 mg PO QAM Qty: 90 RF: 3 pantoprazole [Protonix] 40 mg tablet,delayed release (DR/EC) 40 mg PO BID Qty: 180 RF: 3 venlafaxine [Effexor XR] 150 mg capsule,extended release 24hr 150 mg PO QAM Qty: 90 RF: 1 gabapentin 100 mg capsule 100 mg PO HS Qty: 30 RF: 5 multivitamin tablet 1 tab PO QAM RF: 0 calcium carbonate 500 mg calcium (1,250 mg) tablet,chewable 500 mg PO DAILY RF: 0 venlafaxine [Effexor XR] 75 mg capsule,extended release 24hr 75 mg PO QAM RF: 0 levothyroxine 75 mcg tablet 75 mcg PO QAM RF: 0 Discharge Orders: Discharge Order (Routine); Ordered 04/17/21 Ordered By: Avila Lester Admission Data Admit Date/Time: 04/16/21 13:55 Attending Provider: Avila Lester Admit Provider: Avila Lester Primary Care Provider: Eliot Waite
[2021-04-17] MEDS: DOCUSATE SODIUM 100 MG CAP PO SCH (08:18)
[2021-04-17] MEDS: ASPIRIN 81 MG ECTAB PO SCH (08:19)
[2021-04-17] MEDS ORDERED: buPROPion XL 150 MG TABCR PO SCH (09:00)
[2021-04-17] MEDS ORDERED: VENLAFAXINE HCL XR 150 MG CAPXR PO SCH (09:00)
[2021-04-17] MEDS ORDERED: VENLAFAXINE HCL XR 75 MG CAPXR PO SCH (09:00)
[2021-04-17] MEDS ORDERED: MULTIVITAMIN TAB PO SCH (09:00)
== END 2021-04-17 12:23 | disposition home health service (06) ==
LOC: ASU 08:10 → 3E 08:10